=== PATIENT | female | born 1985 | race African-American/Black ===

== ENCOUNTER 2016-11-29 10:50 | Emergency (ER) | payer SELFPAY ==
[~2016-11-29] VITALS: Ht 162.6 cm; Wt 68.0 kg
[2016-11-29 10:53] VITALS: BP 123/70; PULSE 80; RESP 18; TEMP 98.9; O2SAT 99
--- NOTE | 2016-11-29 12:28 | PD ---
HPI . dry cough for 2 days Chief Complaint: Cold / Flu Symptoms Time Seen by Provider: 12:24 Travel History International Travel<30 days: No Contact w/Intl Traveler<30days: No Traveled to known affect area: No History of Present Illness HPI 31-year-old female here with complaints of a dry cough for 2 days. Patient tells me that sometimes when she coughs she feels like her chest tightness, she is not having chest pain or tightness at this moment. She denies any nausea, vomiting or diaphoresis. Patient says she just wanted to be checked out because everyone in her family seems to be sick. She has a family member who had some fever and another one who had a year problem. She denies any fever, chills, chest pain or shortness of breath. History Past Medical Histgory LMP: 10/28/16 Review of Systems General / Constitutional: No: Fever Eyes: No: Visual changes HENT: No: Headaches, Sore Throat, Congestion Cardiovascular: No: Chest Pain or Discomfort, Syncope Respiratory: No: Shortness of Breath Gastrointestinal: No: Nausea, Vomiting, Abdominal Pain Genitourinary: No: Dysuria Musculoskeletal: No: Pain Skin: No Rash Neurologic: No: Weakness Psychiatric: No: Depression Endocrine: No: Polydipsia Hematologic/Lymphatic: No: Easy Bruising Physical Exam Narrative GENERAL: AAO x 3, no acute distress, Well-nourished, well-developed patient. SKIN: Warm and dry. No visible rashes or bruising. HEAD: Normocephalic and atraumatic. EYES: No scleral icterus. No injection or drainage. ENT: No nasal drainage noted. Mucous membranes pink. Airway patent. No oropharynx abnormality. TMs normal bilaterally. NECK: Supple, trachea midline. No JVD. No lymphadenopathy CARDIOVASCULAR: Regular rate and rhythm without murmurs, gallops, or rubs. RESPIRATORY: Breath sounds equal bilaterally. No accessory muscle use. No rhonchi or rales. No wheezing GASTROINTESTINAL: visual inspection normal EXTREMITIES: No cyanosis or edema. BACK: No obvious deformity. No CVA tenderness. NEURO: CN II-12 intact, PSYCH: AAO x 3, normal affect. Data Data Last Documented VS Vital Signs Date Time Temp Pulse Resp B/P (MAP) Pulse Ox O2 Delivery O2 Flow Rate FiO2 11/29/16 10:53 98.9 80 18 123/70 87 99 Room Air MDM Medical Screen Exam Complete: Yes Emergency Medical Condition: No Differential Diagnosis viral syndrome, less likely influenza, less likely pneumonia Narrative Course A medical screening exam was performed: At the time of evaluation the presenting medical condition was determined not to be of an emergent nature. The patient was given the option of receiving additional care, but declined. Patient was given options for additional community resources from which to obtain care. The Patient Has Been advised to seek medical attention for their presenting complaint. The patient has been advised to return to the ER at any time if an emergent condition develops. Primary Impression: Encounter for medical screening examination Condition: Stable Melissa Hernandez Nov 29, 2016 12:28
== END 2016-11-29 12:38 | disposition left against medical advice (07) ==
LOC: NEPK 10:50
DX: R05 Cough (principal)
CPT/HCPCS: 99281